=== PATIENT | male | born 1985 | race African-American/Black ===

== ENCOUNTER 2020-10-16 21:13 | Inpatient (IN) | payer OTHER ==
[~2020-10-16] VITALS: Ht 177.8 cm; Wt 108.0 kg
[~2020-10-16 21:13] MED LIST: PROAIR HFA8.5 GM INH
--- NOTE | 2020-10-16 23:45 | NUR ---
PT ARRIVES WITH SISTER IN LAW, ADMITTED FOR COVID POSITIVE PNEUMONIA. TESTED POSITIVE ON September AND TODAY HAD WORSENING SOB AND O2 SATS DOWN TO 78%. CURRENTLY WEARING O2 AT 4L SPO2 94%, WHEN PT GOT UP AND MOVED HIMSELF TO THE BED FROM [facility] OXYGEN DROPPED DOWN TO 86-87% SO O2 TURNED UP TO 6L AND SPO2 CURRENTLY AT 92%. PT IS AWAKE AND ALERT AND ORIENTED. SISTER IN LAW CARYN STATES SHE IS HIS POWER OF MANAGER QUALITY IMPROVEMENT AND IS HELPING WITH ANSWERING SOME OF THE ADMISSION QUESTIONS. 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 PT STATES HE IS HUNGRY, DINNER PROVIDED AND PT IS CURRENTLY SITTING UP IN BED EATING. LUNGS HAVE MODERATE AMOUNT OF CRACKLES IN BASES AND FEW MIDWAY UP LUNGS. PRONING DISCUSSED WITH PT AND HE WILL TRY AFTER HE IS DONE EATING HIS FOOD. REMDESIVIR AND IVF STARTED INFUSING.
--- NOTE | 2020-10-17 00:49 | NUR ---
COUGH MEDICINE GIVEN FOR OCCASIONAL DRY UNPRODUCTIVE SOUNDING COUGH.
--- NOTE | 2020-10-17 02:32 | NUR ---
PT RESTING WITH EYES CLOSED, RESP EVEN AND UNLABORED, O2 AT 4L/NC SPO2 96%. OCCASIONAL COUGHING HEARD.
--- NOTE | 2020-10-17 05:00 | NUR ---
IN TO CHECK ON PT, DENIES NEEDS AND BACK TO SLEEP.
--- NOTE | 2020-10-17 06:20 | NUR ---
IN TO DRAW LABS, NEW IV STARTED IN RIGHT ARM. PT DENIES NEEDS, STATES HE HAS BEEN COUGHING LESS. ON 4L/NC SPO2 94%.
--- NOTE | 2020-10-17 08:50 | NUR ---
IV SITES ARE INTACT, NO SWELLING OR REDNESS NOTED, PT DENIES PAIN A EITHER SITE. PT IS ALERT AND ORIENTED X4. SKIN IS INTACT. PT ASKS GOOD QUESTIONS. BREAKFAST HAS BEEN DELIVERED. PT IS IN NO OBSERVABLE DISTRESS AT THIS TIME, HE IS COOPERATIVE AND APPROPRIATE. PT DENIES ANY OTHER NEEDS AT THIS TIME. CALL LIGHT IS WITHIN REACH.
--- NOTE | 2020-10-17 09:55 | NUR ---
full report given to JESUS MANUEL Rojas. all questions answered. pt to transfer to med/surg.
--- NOTE | 2020-10-17 10:00 | NUR ---
REPORT RECIEVED FROM JESUS MANUEL TA. PT BROUGHT OVER IN BED. VSS ON 5L VIA NC. PT PLACED ON CPOX TO MONITOR O2 SATS. PT DENIES ANY NEEDS AT THIS TIME.
--- NOTE | 2020-10-17 10:15 | NUR ---
pt transfered to med/surg room 114 on med-surg via bed. all personal belongings went with pt, including his support person, Caitlin. pt debbi transfer well.
--- NOTE | 2020-10-17 12:00 | NUR ---
PT SITTING UP IN BED W/ CALL LIGHT IN REACH, EATING LUNCH. WAITING ON PHARMACY TO BRING IV ANTIVIRAL. PT DENIES SOB, 02 SATS 92% ON 5L VIA UT.
--- NOTE | 2020-10-17 14:45 | NUR ---
PT RESTING IN BED SAFELY W/ CALL LIGHT IN REACH, IV ANTIVIRAL AND IV FLUIDS INFUSING PER PROVIDER ORDER. PT ASKED FOR ICE WATER. PT DENIES SOB, O2 SATS 93% ON 5L VIA NC.
--- NOTE | 2020-10-17 17:43 | NUR ---
PT TRANSFERED FROM CCU TODAY AT 1015. PT RESTING IN BED, CPOX ON O2 STATS 93% ON 5L VIA NC, PT DENIES SOB. PT CALLS APPROPRIATELY. [id number] CALLED FOR UPDATE THIS EVENING. IV FLUIDS INFUSING PER PROVIDER ORDERS. SBA TO BATHROOM, USES URINAL IND. VSS ON 5L.
--- NOTE | 2020-10-17 19:49 | NUR ---
REPORT RECEIVED FROM OFFGOING RN. PT RESTING IN BED WATCHING TV. DENIES NEEDS AT THIS TIME. CALL LIGHT IN REACH.
--- NOTE | 2020-10-17 21:01 | NUR ---
PT ASSESSMENT COMPLETE. PT DENIES PAIN OR NAUESA. REPORTS OCCASIONAL SOB, ESPECIALLY WITH COUGH. NO COUGH NOTED DURING THIS ASSESSMENT. PT REPORTS LARGE MUCOUS PRODUCTION. ALSO ENDORSES PLUERITIC PAIN WITH COUGH. LUNGS WITH CRACKLES PRESENT TO BLL. O2 @ 5 VIA NC. PT REPORTS FEELING BETTER STATES IT DOES NOT TAKE HIM LONG TO RECOVER AFTER COUGHING ANYMORE. IV FLUSHED, 2, WNL, PATENT. RT TO ROOM FOR NEB. PT DENIES FURTHER NEEDS AT THIS TIME. WHITE BOARD UPDATED. VS OBTAINED, WNL. CALL LIGHTIN REACH. RT REMAINS AT BEDSIDE.
--- NOTE | 2020-10-17 22:08 | NUR ---
ICE WATER PROVIDED.
--- NOTE | 2020-10-17 22:15 | NUR ---
PT UTILIZES CALL LIGHT, STATES IV MAY BE "MESSED UP". SENIOR APPLICATION SECURITY CONSULTANT TO ROOM. PT STATES HE MAY HAVE ACCIDENTLY PULLED ON IV. IV SITE WNL. FLUSHED, PATENT. COBAN PLACED TO SECURE. PT DENIES FURTHER NEEDS AT THIS TIME. CALL LIGHT IN REACH.
--- NOTE | 2020-10-18 00:09 | NUR ---
PT RESTING IN BED WITH EYES CLOSED. WAKES BRIEFLY WHEN STEREOTYPER HELPER OPENS THE DOOR. DENIES NEEDS. CALL LIGHT IN REACH.
--- NOTE | 2020-10-18 03:26 | NUR ---
PT ASSESSMENT COMPLETE. LUNG SOUNDS COARSE THROUHGOUT ALL LUNG KOO. DEEP BREATHING CAUSES PT TO COUGH. PT BEGAN COUGHINGWITH A MODERATE AMOUNT OF MUCIOUS PRODUCTION FOR APPROXIMATELY 5 MINUTES WHILE ROBOTICS TECHNOLOGIST AT BEDSIDE. SOA 02 84-86, SAO2 DOES NOT INCREASE AFTER COUGHING OVER. O2 INCREASED TO 7 LPM. SA02 91% ON 7 LPM. PT DIAPHORETIC AND SHAKEY AFTER COUGHING FIT. PT STATES THAT THIS IS AN IMPROVEMENT FROM HOW HE WAS FEELING AT HOME. PT RESTING IN BED WATCHING TV. IVF INFUSING ORDERED. DENIES FURTHER NEEDS AT THIS TIME. CALL LIGHT IN REACH.
--- NOTE | 2020-10-18 04:53 | NUR ---
PT UTILIZES CALL LIGHT. REQUESTS ASSISTANCE LOWERING HOB. MEAT WASHER TO ROOM, EDCUATION PROVIDED ON BED ADJUSTMENT. PT STATES UNDERSTANDING. PT STATES HE IS FEELING IMPROVED FROM EARLIER. NO FURTHER EPISODES OF COUGHING. SA02 NOTED TO BE IN HIGH 90S ON 7 LPM VIA NC. O2 DECREASED TO 5 LPM, SA02 95%. VS OBTAINED, WNL. PT DENIES FURTHER NEEDS AT THIS TIME. CALL LIGHT IN REACH.
--- NOTE | 2020-10-18 07:30 | NUR ---
REPORT RECEIVED FROM JESUS MANUEL ANGEL.
--- NOTE | 2020-10-18 07:53 | NUR ---
CALLED INTO PATIENTS ROOM, PATIENT WAS COUGHING, PATIENT IS GOING TO LOOK OVER THE BREAKFAST MENU AND PUSH HIS CALL LIGHT TO ORDER, OR CALL IT DOWN HIMESELF
--- NOTE | 2020-10-18 09:29 | NUR ---
PT SITTING UP IN BED HAVING JUST HAD A COUGHING SPELL. SPIT COPIOUS AMTS SPUTUM INTO EMESIS BAG. ADMINSITERED SCHEDULED AND PRN MEDS INCLUDING ROBOTUSSIN. PT ASKED FOR COUGH DROPS, WILL ASK DR YOUNG. PT DENIES FURTHER CONERNS.
--- NOTE | 2020-10-18 14:04 | NUR ---
WENT IN ROOM, VITAL SIGNS ARE CHARTED PATIENT NEEDED NO OTHER ASSSITANCE AT THIS TIME
--- NOTE | 2020-10-18 14:48 | NUR ---
PT SITTING UP IN BED. OFFERED A SHOWER BUT STATES THAT HIS SISTER IN LAW IS COMING BACK IN A BIT WITH CLEAN CLOTHES SO HE WILL THEN. WE WILL ALSO CHANGE HIS BEDDING. REFILLED ICE CUP. ASSESSMENT COMPLETE, LUNGS NOW CLEAR.
--- NOTE | 2020-10-18 15:33 | NUR ---
PATIENT IS DEVELPMENTALLY DELAYED AND STAFF THINKS HE WILL HAVE A HARD TIME WITH ASSESSMENT QUESTIONS. HE IS ORIENTED, BUT MIGHT HAVE HARD TIME WITH LARGER WORDS OR TOPICS. CALLED SISTER CARYN [phone]. SHE STATES HE LIVES WITH HER AND . SHE HAS HAD TO TAKE FMLA (UNPAID) TO CARE FOR THEM BOTH DUE TO COVID. SHE STATES PATIENT GETS SSI. SHE PAYS THE BILLS FOR HIM HE IS NOT CAPABLE OF UNDERSTANDING THAT NEED. SHE STATES HE DOES NOT USE DME. HE IS FULLY AMBULATORY. HE IS ABLE TO STAY ON HIS OWN FOR SHORT PERIODS OF TIME, AROUND 2 HOURS. HE CAN USE THE [place], BUT WOULD FORGET STOVE BURNERS FOR INSTANCE. WHEN HE IS HOME ALONE THEY LEAVE PREPARED FOOD FOR HIM. HE FEEDS SELF. HE TOILETS SELF. SHE STATES HE DOES NOT SHOWER UNLESS SHE REMINDS HIM AND MAKES SURE HE CLEANS HIMSELF. HE HAS LIVED WITH HER FOR 14 YEARS. SHE DOES NOT GET PAID. SHE IS A FORENSIC ACCOUNTANT AT [employer]. HE GETS [employer] BENEF[employer]. SHE IS CONCERNED ABOUT UTILITIES, AND BILLS IN GENERAL THEY HAVE BEEN OFF WORK DUE TO COVID AND SHE DOES NOT HAVE PAID FMLA. SHE CONTACTED [employer], BUT THEY SAID THEY ARE ABOUT 6 WEEKS BEHIND FOR HELPING PEOPLE. SHE IS WILLING TO HAVE [facility] CALL AND SEE ABOUT RESOURCES. COST OF MEDS ARE PAID THROUGH [facility]. SHE IS INTERESTED IN POA. DISCUSSED HOW THIS WORKS. DISCUSSED THAT BECAUSE HE HAS COVID WE WOULD NOT BE ABLE TO GET NOTARY IN THE DO THIS. THEY DID FILL OUT A POLST SHE STATES. ENCOURAGED HER TO DO POA LATER WHEN COVID IS CLEAR. PATIENT NEEDS PCP. HER FIRST CHOICE WOULD BE [facility] THIS IS WHERE SHE GO[facility]. SHE STATES IS GOING TO BE SEEN AT OUR CLINIC. EITHER WOULD BE FINE. HER ONLY QUESTION WAS ABOUT OXYGEN NEED. DISCUSSED WE WON'T KNOW FOR SURE UNTIL RIGHT BEFORE DISCHARGE AND WE WILL ARRANGE THIS. NO OTHER QUESTIONS AT THIS TIME. SHE STATES SHE HAS BEEN CALLING [facility] TO CHECK ON HIM. CM WILL CONTINUE TO FOLLOW.
--- NOTE | 2020-10-18 19:15 | NUR ---
REPORT RECEIVED FROM OFFGOING RNSHEYLA.
--- NOTE | 2020-10-18 19:30 | NUR ---
ANSWERED CALL LIGHT. PATIENT IS READY FOR SHOWER. WENT IN TO THE ROOM. WRAPPED IV SITE X2. CHANGED BED LINEN. ADVERTISING PHOTOGRAPHER SOME GARBAGE. V/S AND I&O'S DONE AND RECORDED. PATIENT IS BACK IN BED. CALL LIGHT WITHIN REACH. FAMILY LEFT.
--- NOTE | 2020-10-18 23:02 | NUR ---
PT ASSESSMENT COMPLETE. PT SITTING UP IN BED WATCHING TV. PT DENIES PAIN, SOB, OR NAUSEA. O2 @ 5LPM VIA NC. CPOX IN PLACE, SAO2 90'S. LUNG SOUNDS CLEAR IN BILATERAL UPPER LOBES, COARSE IN BILATERAL LOWER LOBES. PT WITH OCCASIONAL PRODUCTIVE COUGH DURING ASSESSMENT. IV FLUSHED X 2. PT DENIES FURTHER NEEDS AT THIS TIME. CALL LIGHT IN REACH.
--- NOTE | 2020-10-19 01:00 | NUR ---
PT RESTING IN BED WITH EYES CLOSED. WAKES EASILY WHEN PATTERN CHANGER OPENS THE DOOR. DENIES NEEDS AT THIS TIME. CPOX IN PLACE, SAO2 90'S, CALL LIGHT IN PTS REACH.
--- NOTE | 2020-10-19 03:30 | NUR ---
PT RSETINGIN BED WITH EYES CLOSED. DOES NOT WAKE WHILE TACO MAKER AT DOORWAY. CPOX IN PLACE, SAO2 @ 96%. CALL LIGHT IN REACH.
--- NOTE | 2020-10-19 05:30 | NUR ---
PT ASSESSMENT COMPLETE. PT DENIES PAIN, NAUSEA, OR SOB. LUNG SOUNDS CLEAR IN B UPPER LOBES, COARSE IN BILATERAL LOWER LOBES. NO COUGH NOTED DURING ASSESSMENT. CPOX IN PLACE SAO2 94-96% ON 4/5 LPM VIA NC. URINAL EMPTIED. PT DENIES FURTHER NEEDS AT THIS TIME. CALL LIGHT IN REACH. WHITE BOARD UPATED.
--- NOTE | 2020-10-19 07:56 | NUR ---
RESPIRATORY THERAPY IN ROOM WITH PATIENT AT THIS TIME, BREAKFAST TO PATIENT.
--- NOTE | 2020-10-19 08:38 | NUR ---
MORNING ASSESSMENT DONE, PATIENT RESTING IN BED, ATE 70% OF BREAKFAST. PATIENT IS MAINTAINING 92% ON 4.5L O2 VIA NC. ENDOURAGED PATIENT TO PRONE, HE DID ENDORSE SLEEPING ON HIS SIDE FOR A SHORT AMOUNT OF TIME LAST NIGHT. MORNING MEDICATIONS GIVEN. NO OTHER NEEDS NOTED AT THIS TIME.
--- NOTE | 2020-10-19 10:00 | NUR ---
PATIENT DENIES NEEDS, REPORTS LYING ON SIDE FOR 10 MINUTES. O2 SATS ARE 96% ON 4.5L VIA NC.
--- NOTE | 2020-10-19 10:00 | NUR ---
Spoke with Angela from [facility], and was able to schedule an appt. with Pamela Avila. Please see dc paper work for date and time. Per [address] Nails pt will dc tomorrow.
--- NOTE | 2020-10-19 10:20 | NUR ---
PATIENT SITTING UP IN BED WATCHING TV. VITALS AND I&O'S CHARTED. FRESH WATER GIVEN. PATIENTN REFUSED SHOWER AND BED BATH AT THIS TIME. CALL LIGHT IN REACH. NO FURTHER NEEDS AT THIS TIME.
--- NOTE | 2020-10-19 12:12 | NUR ---
PATIENT SITTING UP TO EAT LUNCH. OXYGEN REDUCED TO 3.5L AND SATS ARE 92-93%. ENCOURAGED PATIENT TO PRONE AFTER LUNCH.
--- NOTE | 2020-10-19 13:32 | NUR ---
PATIENT SALINE LOCKED AT THIS TIME. I/O DONE, VITALS ARE STABLE. PATIENT TITRATED TO 2L 02 VIA NC AND IS MAINTAINING AT 93-94% PATIENT DENIES PAIN OR OTHER NEEDS AT THIS TIME. ENCOURAGED PATIENT TO CONTINUE INTERMITTANT PRONING, AND HE UNDERSTANDS IT HAS HELPED HIM REQUIRE LESS OXYGEN.
--- NOTE | 2020-10-19 19:20 | NUR ---
REPORT RECEIVED FROM JESUS MANUEL ESPINOZA. pt RESTING IN BED AWAKE, SPO2 94% WITH 2L OXYGEN BY NC IN PLACE. NO REQUESTS AT THIS TIME.
--- NOTE | 2020-10-19 22:02 | NUR ---
pt RESTING IN BED AWAKE, WATCHING TV. VSS. AFEBRILE. pt DENIES SOB. SPO2 WNL WITH 2L OXYGEN BY NC IN PLACE. LUNG SOUNDS CLEAR THROUGHOUT ALL LOBES. NO COUGH AT THIS TIME, pt REPORTS OCCASIONAL PRODUCTIVE COUGH. DENIES PAIN. DENIES NAUSEA. CALL LIGHT IN REACH.
--- NOTE | 2020-10-19 23:18 | NUR ---
CHECKED ON pt. RESTING IN BED WITH EYES CLOSED. SPO2 WNL WITH 2L OXYGEN BY NC IN PLACE. LIGHTS OFF IN ROOM.
--- NOTE | 2020-10-20 00:32 | NUR ---
ENTRY LEVEL FINANCIAL ANALYST IN ROOM. CPOX ALARMING, SPO2 87-88% WITH 2L OXYGEN BY NC. pt STATES HE USED URINAL, WAS JUST SITTING UP. ENCOURAGED TO LIE ON SIDE OR STOMACH IF POSSIBLE. pt STATES "I DID LIE ON MY SIDE FOR 15 MINTUTES". EDUCATION PROVIDED ON PRONE POSITIONING, pt STATES "I KNOW." OXYGEN TITRATED TO 5L OXYGEN BY NC, SPO2 INCREASES TO 91-92%. pt SITTING IN HIGH FOWLERS POSITION WATCHING TV.
--- NOTE | 2020-10-20 02:49 | NUR ---
CHECKED ON pt. pt AWAKE RESTING IN BED. DENIES NEEDS AT THIS TIME. SPO2 98% WITH 5L OXYGEN BY NC IN PLACE.
--- NOTE | 2020-10-20 06:30 | NUR ---
pt AWAKE RESTING IN BED. 5L OXYGEN BY NC IN PLACE, SPO2 94-96% AT REST. pt ENCOURAGED TO PRONE ABLE. EDUCATION PROVIDED. LUNG SOUNDS CLEAR, FINE CRACKLES RLL. pt DENIES PAIN. BREAKFAST ORDER PLACED. VSS. CALL LIGHT IN REACH.
--- NOTE | 2020-10-20 07:38 | NUR ---
REPROT RECEIVED. PT IN ROOM. AIRBORN PRECAUTIONS IN PLACE. PT LEFT UNDISTURBED. 5L NC IN PLACE. CALL LIGHT IN REACH.
--- NOTE | 2020-10-20 09:33 | NUR ---
ASSESSMENT COMPLETED. PT IN BED. SOB WITH ACTIVITY. TITRATED 5L NC TO 4L NC. SATURATIONS 92%. PT WITH NON-PRODUCTIVE COUGH. LUNGS CLEAR. HEART SOUNDS REGULAR. BOWEL TONES ACTIVE. DENIES FURTHER NEEDS. RT IN FOR HOME O2 QUALIFIER. SISTER CALLED AND UPDATED ON PLAN OF CARE PER PT REQUEST.
[2020-10-20] MEDS ORDERED: BENZONATATE100 MG PO (10:14)
[2020-10-20] MEDS ORDERED: PANTOPRAZOLE SO40 MG PO (10:14)
[2020-10-20] MEDS ORDERED: DEXAMETHASONE6 MG PO (10:15)
--- NOTE | 2020-10-20 10:45 | NUR ---
Called and spoke with pt's sister as 02 qualifier shows need for 02. She would like to use [facility] for DME. Updated I will call [facility] and 02 will be delivered prior to pts discharge. She will receive a call from the RN when pt is close to dc. Qualifier given to Dr. Nails and she will complete an RX and note for 02.
--- NOTE | 2020-10-20 10:55 | NUR ---
Face sheet, rx, chart notes, H&P faxed to [facility] for 02. Called and spoke with Juan and updated they will receive fax.
--- NOTE | 2020-10-20 10:57 | NUR ---
education provided on proning. pt still refuses to prone. he reid he is not tired and cannot lay for as long as 30 minutes. told pt we will try again later.
--- NOTE | 2020-10-20 15:10 | NUR ---
DISCHARGE INSTRUCTIONS CALLED TO SISTER CARYN AND PROVIDED TO PT. NO QUESTIONS. IV DC'D AND WNL. DISCHARGED WITH HOME OXYGEN TANK.
== END 2020-10-20 15:00 | disposition home or self-care (01) | DRG 177 ==
LOC: ED 21:13 → MS 23:03 → CCU 23:03 → MS 10-17 10:15
PROVIDERS: ADMIT Student in an Organized Health Care Education/Training Program; ATTEND Student in an Organized Health Care Education/Training Program
PROC: 3E0333Z Introduction of Anti-inflammatory into Peripheral Vein, Percutaneous Approach (ICD-10-PCS; principal; 2020-10-16)
PROC: XW033E5 Introduction of Remdesivir Anti-infective into Peripheral Vein, Percutaneous Approach, New Technology Group 5 (ICD-10-PCS; 2020-10-16)
DX: U07.1 COVID-19 (principal); J12.82 Pneumonia due to coronavirus disease 2019; J96.01 Acute respiratory failure with hypoxia; F84.0 Autistic disorder; J45.20 Mild intermittent asthma, uncomplicated
CPT/HCPCS: 71045; 80053; 85025; 94640; 94667; 94668; 94760; 94761; 94762; 96374; 96375; 97161; 99285-25; A9270; J1100; J1650; J2405; J7050; J7121